=== PATIENT | male | born 1965 | race Two or more races ===

== ENCOUNTER 2018-02-19 11:21 | Inpatient (IN) | payer BC, OTHER ==
[~2018-02-19] VITALS: Ht 172.7 cm; Wt 125.0 kg
[2018-02-19 15:22] LABS: Basophils # (auto) 0 uL; Basophils % (auto) 0.4 % (0.0-2.0); Eosinophils # (auto) 0.1 uL; Eosinophils % (auto) 0.9 % (0.0-7.0); Hematocrit 47.5 % (41.0-53.0); Hemoglobin 16.1 g/dL (13.5-17.5); Lymphocytes # (auto) 1.4 uL; Lymphocytes % (auto) 17.5 % (10.0-50.0); Mean Corpuscular Volume 88.3 fL (80.0-100.0); Monocytes # (auto) 0.6 uL; Monocytes % (auto) 7.3 % (0.0-12.0); Neutrophils % (auto) 73.9 % (37.0-80.0); Nucleated Red Blood Cells % 0.1 %; Platelet Count (auto) 299 10^3/uL (140-450); Red Blood Cells 5.38 10^6/uL (4.5-5.90); Red Cell Distribution Width 13.4 % (11.8-14.3); White Blood Cell 8.2 10^3/uL (4.4-10.8)
[2018-02-19 15:39] LABS: Albumin 3.1 g/dL (3.4-5.0); Calcium 8.3 mg/dL (8.5-10.1); Potassium 4.7 mmol/L (3.5-5.1)
[2018-02-19 15:42] LABS: BUN/Creatinine Ratio 20.4; Bilirubin, Total 0.4 mg/dL (0.2-1.0); Total Protein 6.8 g/dL (6.4-8.2)
[2018-02-19] MEDS ORDERED: MET50T PO (16:57)
[2018-02-19] MEDS ORDERED: BACL20TA PO (16:57)
[2018-02-19] MEDS ORDERED: GABA250S2 PO (16:57)
[2018-02-19] MEDS ORDERED: GLIP-115 PO (16:57)
[2018-02-19] MEDS ORDERED: BENA40TA7 PO (16:57)
[2018-02-19] MEDS ORDERED: ATOR20TA50 PO (16:57)
[2018-02-19] MEDS ORDERED: CLOP75TA41 PO (16:57)
[2018-02-19] MEDS ORDERED: SODIUM CHLORIDE 0.9% 1,000 ML IV ONE (17:00)
[2018-02-19] MEDS ORDERED: HYDROcodone-ACET 5/325MG TAB PO PRN (17:45)
[2018-02-19] MEDS ORDERED: MORPHINE SULFATE 10 MG/ML INJ 1ML SDV IV PRN ×2 (17:45)
[2018-02-19] MEDS ORDERED: NITROGLYCERIN 0.4 MG SL TAB SL PRN (17:45)
[2018-02-19] MEDS ORDERED: DEXTROSE (50%) 50ML SYRG IV PRN (17:45)
[2018-02-19] MEDS ORDERED: ONDANSETRON HCL 4 MG/2 ML VIAL IV PRN (17:45)
[2018-02-19] MEDS ORDERED: VANCOMYCIN PER PHARMACY 0 MG IV SCH (18:00)
[2018-02-19] MEDS: PIPERACILLIN-TAZOB 3.375GM 100 ML IV SCH (18:14)
[2018-02-19] MEDS: VANCOMYCIN 1,250 MG in D5W 5% 250 ML IV SCH (20:07)
[2018-02-19 22:00] VITALS: BP 158/107
[2018-02-19] MEDS: GABAPENTIN 300 MG CAP PO SCH (22:00)
[2018-02-19] MEDS: ALPRAZolam 0.25 MG TAB PO SCH (22:00)
[2018-02-19] MEDS: ACCU-CHEK COMFORT CURVE STRIP VI SCH (22:00)
[2018-02-19] MEDS: ATORVASTATIN 20 MG TAB PO SCH (22:00)
[2018-02-19] MEDS: BACLOFEN 10 MG TAB PO SCH (22:00)
[2018-02-19] MEDS: METOPROLOL TARTRATE 50 MG TAB PO SCH (22:00)
[2018-02-19] MEDS: InsuLIN REG 1unit/0.01ml Soln (100units/ml) SC SCH (22:00)
[2018-02-20] MEDS ORDERED: ASP81EC PO (00:14)
[2018-02-20] MEDS: VANCOMYCIN 1,250 MG in D5W 5% 250 ML IV SCH ×3 (04:50→23:05)
[2018-02-20 05:38] VITALS: BP 120/70
[2018-02-20 05:53] LABS: Basophils # (auto) 0 uL; Basophils % (auto) 0.5 % (0.0-2.0); Eosinophils # (auto) 0.1 uL; Eosinophils % (auto) 1.9 % (0.0-7.0); Hematocrit 41.5 % (41.0-53.0); Hemoglobin 13.9 g/dL (13.5-17.5); Lymphocytes # (auto) 1.7 uL; Lymphocytes % (auto) 23.9 % (10.0-50.0); Mean Corpuscular Hemoglobin 29.1 pg (28.0-32.0); Mean Corpuscular Hgb Conc. 33.4 g/dL (32.0-36.0); Monocytes # (auto) 0.7 uL; Monocytes % (auto) 9.9 % (0.0-12.0); Neutrophils # (auto) 4.5 uL; Neutrophils % (auto) 63.8 % (37.0-80.0); Platelet Count (auto) 288 10^3/uL (140-450); Red Blood Cells 4.77 10^6/uL (4.5-5.90); Red Cell Distribution Width 13.4 % (11.8-14.3)
[2018-02-20 06:10] LABS: Calcium 7.9 mg/dL (8.5-10.1); Potassium 3.9 mmol/L (3.5-5.1)
[2018-02-20 06:16] LABS: BUN/Creatinine Ratio 19.8
[2018-02-20] MEDS: ACCU-CHEK COMFORT CURVE STRIP VI SCH ×4 (06:34→22:45)
[2018-02-20] MEDS: InsuLIN REG 1unit/0.01ml Soln (100units/ml) SC SCH ×4 (06:35→23:05)
[2018-02-20] MEDS: PIPERACILLIN-TAZOB 3.375GM 100 ML IV SCH ×3 (06:35→12:15)
[2018-02-20 08:00] VITALS: BP 140/78
[2018-02-20] MEDS: ASPirin-EC 81 mg tab PO SCH (10:32)
[2018-02-20] MEDS: ALPRAZolam 0.25 MG TAB PO SCH ×2 (10:33→22:41)
[2018-02-20] MEDS: BACLOFEN 10 MG TAB PO SCH ×2 (10:33→22:39)
[2018-02-20] MEDS: METOPROLOL TARTRATE 50 MG TAB PO SCH ×2 (10:33→22:40)
[2018-02-20] MEDS: BENAZEPRIL HCL 10 MG TAB PO SCH (10:34)
[2018-02-20 12:00] VITALS: BP 135/76
[2018-02-20 17:00] VITALS: BP 125/77
[2018-02-20 18:11] LABS: Urine Bacteria NONE SEEN /hpf (None Seen); Urine Blood Negative /uL (Negative); Urine Specific Gravity 1.022 (1.001-1.035); Urine WBC <1 /hpf (0 - 3)
[2018-02-20] MEDS ORDERED: PIPERACILLIN-TAZOB 3.375GM 100 ML IV SCH (21:00)
[2018-02-20 22:00] VITALS: BP 121/72
[2018-02-20] MEDS: GABAPENTIN 300 MG CAP PO SCH (22:39)
[2018-02-20] MEDS: ATORVASTATIN 20 MG TAB PO SCH (22:40)
[2018-02-21] MEDS: PIPERACILLIN-TAZOB 3.375GM 100 ML IV SCH ×4 (03:41→18:01)
[2018-02-21 04:50] VITALS: BP 118/71
[2018-02-21 06:36] LABS: Basophils # (auto) 0.1 uL; Basophils % (auto) 1.2 % (0.0-2.0); Eosinophils # (auto) 0.1 uL; Eosinophils % (auto) 2.2 % (0.0-7.0); Hematocrit 41.8 % (41.0-53.0); Lymphocytes # (auto) 1.8 uL; Mean Corpuscular Hemoglobin 29.5 pg (28.0-32.0); Mean Corpuscular Hgb Conc. 33.5 g/dL (32.0-36.0); Monocytes # (auto) 0.6 uL; Monocytes % (auto) 11.1 % (0.0-12.0); Neutrophils # (auto) 3.1 uL; Neutrophils % (auto) 54.5 % (37.0-80.0); Nucleated Red Blood Cells % 0.1 %; Platelet Count (auto) 272 10^3/uL (140-450); Red Blood Cells 4.75 10^6/uL (4.5-5.90); Red Cell Distribution Width 13.6 % (11.8-14.3); White Blood Cell 5.7 10^3/uL (4.4-10.8)
[2018-02-21] MEDS: VANCOMYCIN 1,250 MG in D5W 5% 250 ML IV SCH ×3 (06:42→22:40)
[2018-02-21 06:55] LABS: Albumin 2.8 g/dL (3.4-5.0); Calcium 8.2 mg/dL (8.5-10.1); Magnesium 2.1 mg/dL (1.6-2.6); Potassium 3.9 mmol/L (3.5-5.1)
[2018-02-21 06:58] LABS: Bilirubin, Total 0.5 mg/dL (0.2-1.0)
[2018-02-21] MEDS: ACCU-CHEK COMFORT CURVE STRIP VI SCH ×4 (07:03→22:00)
[2018-02-21] MEDS: InsuLIN REG 1unit/0.01ml Soln (100units/ml) SC SCH ×4 (07:03→22:46)
[2018-02-21 08:57] VITALS: BP 129/82
[2018-02-21] MEDS: ENOXAPARIN SOD 40 MG/0.4 ML SYRINGE SC SCH (09:36)
[2018-02-21] MEDS: BENAZEPRIL HCL 10 MG TAB PO SCH (09:37)
[2018-02-21] MEDS: ALPRAZolam 0.25 MG TAB PO SCH ×2 (09:38→22:45)
[2018-02-21] MEDS: ASPirin-EC 81 mg tab PO SCH (09:38)
[2018-02-21] MEDS: METOPROLOL TARTRATE 50 MG TAB PO SCH ×2 (09:38→22:45)
[2018-02-21] MEDS: BACLOFEN 10 MG TAB PO SCH ×2 (09:38→22:46)
[2018-02-21] MEDS ORDERED: IOHEXOL 350 MG/ML 100ML IJ ONE (12:14)
[2018-02-21 13:00] VITALS: BP_SYST 113; BP_SYST 120; BP_DIAS 58; BP_DIAS 66
[2018-02-21 16:50] VITALS: BP 136/70
[2018-02-21 20:00] VITALS: BP 134/82
[2018-02-21 22:04] VITALS: BP 134/82
[2018-02-21] MEDS: ATORVASTATIN 20 MG TAB PO SCH (22:45)
[2018-02-21] MEDS: GABAPENTIN 300 MG CAP PO SCH (22:46)
[2018-02-21] MEDS: INSULIN LANTUS (GLARGINE) 1 /0.01ml (100units/ml) SC SCH (22:47)
[2018-02-22] MEDS: PIPERACILLIN-TAZOB 3.375GM 100 ML IV SCH ×5 (00:22→17:17)
[2018-02-22 04:48] VITALS: BP 117/70
[2018-02-22] MEDS: InsuLIN REG 1unit/0.01ml Soln (100units/ml) SC SCH ×4 (06:05→21:25)
[2018-02-22] MEDS: ACCU-CHEK COMFORT CURVE STRIP VI SCH ×4 (06:05→21:32)
[2018-02-22 08:00] VITALS: BP 108/61
[2018-02-22] MEDS: VANCOMYCIN 1,250 MG in D5W 5% 250 ML IV SCH ×2 (08:52→18:06)
[2018-02-22 09:00] VITALS: BP_SYST 105; BP_DIAS 54; BP_DIAS 61
[2018-02-22] MEDS: ALPRAZolam 0.25 MG TAB PO SCH ×2 (09:16→21:27)
[2018-02-22] MEDS: BENAZEPRIL HCL 10 MG TAB PO SCH (09:17)
[2018-02-22] MEDS: METOPROLOL TARTRATE 50 MG TAB PO SCH ×2 (09:17→21:27)
[2018-02-22] MEDS: BACLOFEN 10 MG TAB PO SCH ×2 (09:17→21:28)
[2018-02-22] MEDS: ASPirin-EC 81 mg tab PO SCH (09:18)
[2018-02-22] MEDS: ENOXAPARIN SOD 40 MG/0.4 ML SYRINGE SC SCH (09:20)
[2018-02-22 13:00] VITALS: BP 167/89
[2018-02-22] MEDS ORDERED: IOHEXOL 350 MG/ML 100ML IJ ONE ×3 (13:45→14:59)
[2018-02-22] MEDS ORDERED: LIDOCAINE 2%HCL (LOCAL ANESTH.) INJ 20ML MDV ONE (13:46)
[2018-02-22] MEDS ORDERED: ANGIOMAX 250 MG VIAL IV ONE ×2 (13:47→14:36)
[2018-02-22] MEDS ORDERED: MIDAZOLAM HCL 1MG/1ML-2 ML VIAL ONE ×2 (13:48→14:43)
[2018-02-22] MEDS ORDERED: SODIUM CHL 0.9% 50 ML ONE ×2 (13:48→14:36)
[2018-02-22] MEDS ORDERED: fentaNYL CITRATE 100 MCG/2 ML VL ONE ×2 (13:48→14:43)
[2018-02-22] MEDS ORDERED: CLOPIDOGREL 300 MG TAB ONE (15:07)
[2018-02-22] MEDS ORDERED: ASPirin 325 MG TAB ONE (15:07)
[2018-02-22 17:00] VITALS: BP 122/82
[2018-02-22] MEDS: GABAPENTIN 300 MG CAP PO SCH (21:26)
[2018-02-22] MEDS: ATORVASTATIN 20 MG TAB PO SCH (21:26)
[2018-02-22] MEDS: INSULIN LANTUS (GLARGINE) 1 /0.01ml (100units/ml) SC SCH (21:26)
[2018-02-22 21:30] VITALS: BP 139/97
[2018-02-23] MEDS: PIPERACILLIN-TAZOB 3.375GM 100 ML IV SCH ×5 (00:34→23:58)
[2018-02-23] MEDS: VANCOMYCIN 1,250 MG in D5W 5% 250 ML IV SCH ×2 (04:00→15:49)
[2018-02-23 04:01] LABS: Basophils # (auto) 0.1 uL; Basophils % (auto) 0.8 % (0.0-2.0); Eosinophils # (auto) 0.1 uL; Eosinophils % (auto) 1.9 % (0.0-7.0); Hematocrit 41.2 % (41.0-53.0); Hemoglobin 13.8 g/dL (13.5-17.5); Lymphocytes # (auto) 1.2 uL; Lymphocytes % (auto) 17.2 % (10.0-50.0); Mean Corpuscular Hemoglobin 29.3 pg (28.0-32.0); Mean Corpuscular Hgb Conc. 33.6 g/dL (32.0-36.0); Mean Corpuscular Volume 87.1 fL (80.0-100.0); Monocytes # (auto) 0.8 uL; Monocytes % (auto) 10.8 % (0.0-12.0); Neutrophils # (auto) 4.9 uL; Neutrophils % (auto) 69.3 % (37.0-80.0); Nucleated Red Blood Cells % 0.1 %; Platelet Count (auto) 281 10^3/uL (140-450); Red Blood Cells 4.73 10^6/uL (4.5-5.90); Red Cell Distribution Width 13.4 % (11.8-14.3); White Blood Cell 7.1 10^3/uL (4.4-10.8)
[2018-02-23 04:19] LABS: BUN/Creatinine Ratio 13.3; Calcium 8.2 mg/dL (8.5-10.1); Potassium 3.7 mmol/L (3.5-5.1)
[2018-02-23 04:34] VITALS: BP 139/78
[2018-02-23] MEDS: ACCU-CHEK COMFORT CURVE STRIP VI SCH ×4 (06:23→22:03)
[2018-02-23] MEDS: InsuLIN REG 1unit/0.01ml Soln (100units/ml) SC SCH ×4 (06:23→22:03)
[2018-02-23 08:00] VITALS: BP 152/76
[2018-02-23 09:00] VITALS: BP 150/76
[2018-02-23] MEDS: BACLOFEN 10 MG TAB PO SCH ×2 (09:03→22:01)
[2018-02-23] MEDS: ASPirin-EC 81 mg tab PO SCH (09:03)
[2018-02-23] MEDS: CLOPIDOGREL BISULFATE 75 MG TAB PO SCH (09:03)
[2018-02-23] MEDS: BENAZEPRIL HCL 10 MG TAB PO SCH (09:04)
[2018-02-23] MEDS: METOPROLOL TARTRATE 50 MG TAB PO SCH ×2 (09:04→22:02)
[2018-02-23] MEDS: ENOXAPARIN SOD 40 MG/0.4 ML SYRINGE SC SCH (09:05)
[2018-02-23] MEDS: ALPRAZolam 0.25 MG TAB PO SCH ×2 (09:05→22:02)
[2018-02-23 13:00] VITALS: BP 138/84
[2018-02-23 17:00] VITALS: BP 141/86
[2018-02-23 21:32] VITALS: BP 160/82
[2018-02-23] MEDS: ATORVASTATIN 20 MG TAB PO SCH (22:02)
[2018-02-23] MEDS: GABAPENTIN 300 MG CAP PO SCH (22:02)
[2018-02-23] MEDS: INSULIN LANTUS (GLARGINE) 1 /0.01ml (100units/ml) SC SCH (22:03)
[2018-02-24] MEDS: VANCOMYCIN 1,250 MG in D5W 5% 250 ML IV SCH ×2 (03:42→15:27)
[2018-02-24 04:35] VITALS: BP 102/63
[2018-02-24] MEDS: PIPERACILLIN-TAZOB 3.375GM 100 ML IV SCH ×4 (06:16→23:54)
[2018-02-24] MEDS: InsuLIN REG 1unit/0.01ml Soln (100units/ml) SC SCH ×4 (06:18→22:34)
[2018-02-24] MEDS: ACCU-CHEK COMFORT CURVE STRIP VI SCH ×4 (06:18→22:34)
[2018-02-24 07:28] VITALS: BP 137/77
[2018-02-24 07:35] VITALS: BP 137/77
[2018-02-24] MEDS: BACLOFEN 10 MG TAB PO SCH ×2 (08:59→22:32)
[2018-02-24] MEDS: ASPirin-EC 81 mg tab PO SCH (08:59)
[2018-02-24] MEDS: CLOPIDOGREL BISULFATE 75 MG TAB PO SCH (09:00)
[2018-02-24] MEDS: BENAZEPRIL HCL 10 MG TAB PO SCH (09:00)
[2018-02-24] MEDS: METOPROLOL TARTRATE 50 MG TAB PO SCH ×2 (09:01→22:33)
[2018-02-24] MEDS: ALPRAZolam 0.25 MG TAB PO SCH ×2 (09:01→22:34)
[2018-02-24] MEDS: ENOXAPARIN SOD 40 MG/0.4 ML SYRINGE SC SCH (09:01)
[2018-02-24 12:48] VITALS: BP 151/77
[2018-02-24 16:57] VITALS: BP 130/70
[2018-02-24 22:11] VITALS: BP 143/72
[2018-02-24] MEDS: GABAPENTIN 300 MG CAP PO SCH (22:33)
[2018-02-24] MEDS: ATORVASTATIN 20 MG TAB PO SCH (22:33)
[2018-02-24] MEDS: INSULIN LANTUS (GLARGINE) 1 /0.01ml (100units/ml) SC SCH (22:34)
[2018-02-25] MEDS: VANCOMYCIN 1,250 MG in D5W 5% 250 ML IV SCH (03:03)
[2018-02-25] MEDS: PIPERACILLIN-TAZOB 3.375GM 100 ML IV SCH ×3 (06:30→17:21)
[2018-02-25] MEDS: ACCU-CHEK COMFORT CURVE STRIP VI SCH ×4 (06:31→23:13)
[2018-02-25] MEDS: InsuLIN REG 1unit/0.01ml Soln (100units/ml) SC SCH ×4 (06:31→23:13)
[2018-02-25 08:01] VITALS: BP 132/72
[2018-02-25 08:16] VITALS: BP 132/72
[2018-02-25] MEDS: ENOXAPARIN SOD 40 MG/0.4 ML SYRINGE SC SCH (08:55)
[2018-02-25] MEDS: CLOPIDOGREL BISULFATE 75 MG TAB PO SCH (08:55)
[2018-02-25] MEDS: BACLOFEN 10 MG TAB PO SCH ×2 (08:56→23:11)
[2018-02-25] MEDS: BENAZEPRIL HCL 10 MG TAB PO SCH (08:56)
[2018-02-25] MEDS: ASPirin-EC 81 mg tab PO SCH (08:56)
[2018-02-25] MEDS: ALPRAZolam 0.25 MG TAB PO SCH ×2 (08:57→23:12)
[2018-02-25] MEDS: METOPROLOL TARTRATE 50 MG TAB PO SCH ×2 (08:57→23:12)
[2018-02-25 12:51] VITALS: BP 110/70
[2018-02-25] MEDS ORDERED: NEOMYCIN-BACITRACIN-POLYM UNITDOSE PKG TOP OINT TOP ONE (15:45)
[2018-02-25] MEDS: DAKINS QUARTER STR 0.125% (NaHypochlorite) 473 ML TOPICAL SOL TOP SCH (16:20)
[2018-02-25 16:54] VITALS: BP 128/78
[2018-02-25] MEDS ORDERED: VANCOMYCIN 1,250 MG in D5W 5% 250 ML IV SCH (20:00)
[2018-02-25 21:35] VITALS: BP 123/70
[2018-02-25] MEDS: ATORVASTATIN 20 MG TAB PO SCH (23:11)
[2018-02-25] MEDS: GABAPENTIN 300 MG CAP PO SCH (23:12)
[2018-02-25] MEDS: INSULIN LANTUS (GLARGINE) 1 /0.01ml (100units/ml) SC SCH (23:13)
[2018-02-26] MEDS: PIPERACILLIN-TAZOB 3.375GM 100 ML IV SCH ×3 (01:44→12:29)
[2018-02-26 05:02] VITALS: BP 116/69
[2018-02-26] MEDS: ACCU-CHEK COMFORT CURVE STRIP VI SCH ×4 (06:35→22:41)
[2018-02-26] MEDS: InsuLIN REG 1unit/0.01ml Soln (100units/ml) SC SCH ×4 (06:35→22:41)
[2018-02-26 09:02] VITALS: BP 115/70
[2018-02-26 09:29] LABS: Basophils # (auto) 0 uL; Basophils % (auto) 0.7 % (0.0-2.0); Eosinophils # (auto) 0.2 uL; Eosinophils % (auto) 3.3 % (0.0-7.0); Hematocrit 40.6 % (41.0-53.0); Hemoglobin 13.6 g/dL (13.5-17.5); Lymphocytes # (auto) 1.4 uL; Lymphocytes % (auto) 24.2 % (10.0-50.0); Mean Corpuscular Hemoglobin 29.4 pg (28.0-32.0); Mean Corpuscular Hgb Conc. 33.4 g/dL (32.0-36.0); Mean Corpuscular Volume 88.1 fL (80.0-100.0); Monocytes # (auto) 0.6 uL; Monocytes % (auto) 10.2 % (0.0-12.0); Neutrophils # (auto) 3.7 uL; Neutrophils % (auto) 61.6 % (37.0-80.0); Nucleated Red Blood Cells % 0.2 %; Platelet Count (auto) 298 10^3/uL (140-450); Red Blood Cells 4.61 10^6/uL (4.5-5.90); Red Cell Distribution Width 13.2 % (11.8-14.3); White Blood Cell 5.9 10^3/uL (4.4-10.8)
[2018-02-26 09:44] LABS: Anion Gap 10 (5-15); BUN/Creatinine Ratio 12.1; Blood Urea Nitrogen 15 mg/dL (7-18); Calcium 8.4 mg/dL (8.5-10.1); Carbon Dioxide 23 mmol/L (21-32); Chloride 102 mmol/L (98-107); GFR African American > 60 mL/min; GFR Non-African American > 60 mL/min; Glucose 293 mg/dL (74-106); Potassium 4.1 mmol/L (3.5-5.1); Sodium 135 mmol/L (136-145)
[2018-02-26] MEDS: METOPROLOL TARTRATE 50 MG TAB PO SCH ×2 (10:00→22:34)
[2018-02-26] MEDS: BENAZEPRIL HCL 10 MG TAB PO SCH (10:00)
[2018-02-26] MEDS: BACLOFEN 10 MG TAB PO SCH ×2 (10:10→22:34)
[2018-02-26] MEDS: ALPRAZolam 0.25 MG TAB PO SCH ×2 (10:11→22:40)
[2018-02-26] MEDS: ASPirin-EC 81 mg tab PO SCH (10:11)
[2018-02-26] MEDS: CLOPIDOGREL BISULFATE 75 MG TAB PO SCH (10:12)
[2018-02-26] MEDS: ENOXAPARIN SOD 40 MG/0.4 ML SYRINGE SC SCH (11:12)
[2018-02-26] MEDS: NEOMYCIN-BACITRACIN-POLYM 15GM TOP OINT TOP SCH (12:29)
[2018-02-26] MEDS: DAKINS QUARTER STR 0.125% (NaHypochlorite) 473 ML TOPICAL SOL TOP SCH (12:30)
[2018-02-26 13:00] VITALS: BP 143/72
[2018-02-26 13:35] LABS: INR 0.95 (0.9-1.15); Prothrombin Time 10.2 sec (9.27-12.13)
[2018-02-26] MEDS: VANCOMYCIN 1,250 MG in D5W 5% 250 ML IV SCH (16:03)
[2018-02-26 16:38] VITALS: BP 145/77
[2018-02-26 22:00] VITALS: BP 155/78
[2018-02-26] MEDS: ATORVASTATIN 20 MG TAB PO SCH (22:33)
[2018-02-26] MEDS: GABAPENTIN 300 MG CAP PO SCH (22:34)
[2018-02-26] MEDS: INSULIN LANTUS (GLARGINE) 1 /0.01ml (100units/ml) SC SCH (22:41)
[2018-02-27 05:00] VITALS: BP 137/77
[2018-02-27] MEDS: ACCU-CHEK COMFORT CURVE STRIP VI SCH ×4 (07:05→22:03)
[2018-02-27] MEDS: InsuLIN REG 1unit/0.01ml Soln (100units/ml) SC SCH ×4 (07:05→22:02)
[2018-02-27] MEDS: VANCOMYCIN 1,250 MG in D5W 5% 250 ML IV SCH (08:48)
[2018-02-27 09:00] VITALS: BP 116/68
[2018-02-27] MEDS: CLOPIDOGREL BISULFATE 75 MG TAB PO SCH (11:58)
[2018-02-27] MEDS: BACLOFEN 10 MG TAB PO SCH ×2 (11:59→21:56)
[2018-02-27] MEDS: BENAZEPRIL HCL 10 MG TAB PO SCH (12:00)
[2018-02-27] MEDS: ASPirin-EC 81 mg tab PO SCH (12:00)
[2018-02-27] MEDS: METOPROLOL TARTRATE 50 MG TAB PO SCH ×2 (12:01→22:02)
[2018-02-27] MEDS: ALPRAZolam 0.25 MG TAB PO SCH ×2 (12:02→21:57)
[2018-02-27] MEDS: ENOXAPARIN SOD 40 MG/0.4 ML SYRINGE SC SCH (12:02)
[2018-02-27] MEDS: DAKINS QUARTER STR 0.125% (NaHypochlorite) 473 ML TOPICAL SOL TOP SCH (12:04)
[2018-02-27] MEDS: NEOMYCIN-BACITRACIN-POLYM 15GM TOP OINT TOP SCH (12:04)
[2018-02-27 13:00] VITALS: BP 141/76
[2018-02-27 17:06] VITALS: BP 123/82
[2018-02-27 21:45] VITALS: BP 132/77
[2018-02-27] MEDS: ATORVASTATIN 20 MG TAB PO SCH (21:56)
[2018-02-27] MEDS: GABAPENTIN 300 MG CAP PO SCH (21:56)
[2018-02-27] MEDS: INSULIN LANTUS (GLARGINE) 1 /0.01ml (100units/ml) SC SCH (22:03)
[2018-02-28] MEDS: VANCOMYCIN 1,250 MG in D5W 5% 250 ML IV SCH (00:24)
[2018-02-28 05:05] VITALS: BP 146/71
[2018-02-28] MEDS ORDERED: glipiZIDE 5 MG TAB PO SCH (07:00)
[2018-02-28] MEDS: ACCU-CHEK COMFORT CURVE STRIP VI SCH ×2 (07:12→11:17)
[2018-02-28] MEDS: InsuLIN REG 1unit/0.01ml Soln (100units/ml) SC SCH ×2 (07:12→11:17)
[2018-02-28 08:57] VITALS: BP 135/70
[2018-02-28 09:41] LABS: Albumin 2.8 g/dL (3.4-5.0); Anion Gap 4 (5-15); Blood Urea Nitrogen 14 mg/dL (7-18); Calcium 8.6 mg/dL (8.5-10.1); Carbon Dioxide 26 mmol/L (21-32); Chloride 106 mmol/L (98-107); Glucose 202 mg/dL (74-106); Potassium 3.7 mmol/L (3.5-5.1); Sodium 136 mmol/L (136-145)
[2018-02-28 09:45] LABS: Alanine Aminotransferase 61 U/L (16-61); Alkaline Phosphatase 65 U/L (45-117); Aspartate Aminotransferase 34 U/L (15-37); BUN/Creatinine Ratio 12.7; Bilirubin, Total 0.5 mg/dL (0.2-1.0); GFR African American > 60 mL/min; GFR Non-African American > 60 mL/min; Total Protein 6.6 g/dL (6.4-8.2)
[2018-02-28] MEDS: NEOMYCIN-BACITRACIN-POLYM 15GM TOP OINT TOP SCH (10:00)
[2018-02-28] MEDS: DAKINS QUARTER STR 0.125% (NaHypochlorite) 473 ML TOPICAL SOL TOP SCH (10:00)
[2018-02-28] MEDS: ENOXAPARIN SOD 40 MG/0.4 ML SYRINGE SC SCH (10:05)
[2018-02-28] MEDS: BACLOFEN 10 MG TAB PO SCH (10:05)
[2018-02-28] MEDS: CLOPIDOGREL BISULFATE 75 MG TAB PO SCH (10:05)
[2018-02-28] MEDS: ASPirin-EC 81 mg tab PO SCH (10:05)
[2018-02-28] MEDS: BENAZEPRIL HCL 10 MG TAB PO SCH (10:06)
[2018-02-28] MEDS: ALPRAZolam 0.25 MG TAB PO SCH (10:07)
[2018-02-28] MEDS: METOPROLOL TARTRATE 50 MG TAB PO SCH (10:07)
[2018-02-28 13:48] VITALS: BP 135/70
[2018-02-28 14:30] VITALS: BP 132/70
== END 2018-02-28 14:40 | disposition home or self-care (01) | DRG 264 ==
LOC: ER 11:24 → OVERFLOW 17:49 → WEST WING 21:30
PROVIDERS: ADMIT Nurse Practitioner Acute Care; ATTEND Internal Medicine
PROC: 0JBR0ZZ Excision of Left Foot Subcutaneous Tissue and Fascia, Open Approach (ICD-10-PCS; principal; 2018-02-22)
PROC: B41G1ZZ Fluoroscopy of Left Lower Extremity Arteries using Low Osmolar Contrast (ICD-10-PCS; 2018-02-22)
PROC: 04JY3ZZ Inspection of Lower Artery, Percutaneous Approach (ICD-10-PCS; 2018-02-22)
DX: E11.51 Type 2 diabetes mellitus with diabetic peripheral angiopathy without gangrene (principal); E87.1 Hypo-osmolality and hyponatremia; E44.0 Moderate protein-calorie malnutrition; Z68.41 Body mass index [BMI] 40.0-44.9, adult; L03.116 Cellulitis of left lower limb; E11.621 Type 2 diabetes mellitus with foot ulcer; L97.529 Non-pressure chronic ulcer of other part of left foot with unspecified severity; E11.65 Type 2 diabetes mellitus with hyperglycemia; E11.42 Type 2 diabetes mellitus with diabetic polyneuropathy; B35.1 Tinea unguium; E66.9 Obesity, unspecified; E78.5 Hyperlipidemia, unspecified; I70.209 Unspecified atherosclerosis of native arteries of extremities, unspecified extremity; Z66 Do not resuscitate; I10 Essential (primary) hypertension; S90.122A Contusion of left lesser toe(s) without damage to nail, initial encounter; X58.XXXA Exposure to other specified factors, initial encounter; Z79.84 Long term (current) use of oral hypoglycemic drugs; Z83.3 Family history of diabetes mellitus; Z86.73 Personal history of transient ischemic attack (TIA), and cerebral infarction without residual deficits; Z89.511 Acquired absence of right leg below knee; Z79.82 Long term (current) use of aspirin; Z79.899 Other long term (current) drug therapy; Y93.89 Activity, other specified; Y92.89 Other specified places as the place of occurrence of the external cause; Y99.8 Other external cause status
CPT/HCPCS: 36415; 73620; 73700; 73718; 75635; 80048; 80053; 80061; 80202; 81001; 82043; 82565; 82962; 83036; 83735; 85025; 85610; 85652; 86850; 86900; 86901; 87205; 96361; 96365; 99152; A6257; G0378; J1815; J2250; J2543; J7060